=== PATIENT | female | born 1965 | race Caucasian/White ===

== ENCOUNTER → 2018-10-22 | Day surgery (SDC) | payer BC ==
[~2018-10-22] MED LIST: Lactated Ringers 1,000 ML IV SCH; Propofol 200 MG/20 ML SDV IV ONE
--- NOTE | 2018-10-25 09:52 | OR ---
DATE OF OPERATION: 10/22/2018 PREOPERATIVE DIAGNOSIS: SCREENING COLONOSCOPY. POSTOPERATIVE DIAGNOSIS: SCREENING COLONOSCOPY. SURGEON: Jimi Bradford MD PROCEDURE: FULL-LENGTH COLONOSCOPY. ANESTHESIA: MAC via [employer]. COMPLICATIONS: None. SPECIMEN: None. FINDINGS: Normal full length colonoscopy. RECOMMENDATIONS: Follow up colonoscopy every 10 years. INDICATIONS: The patient was in for routine physical. Screening colonoscopy ordered due to her age. DESCRIPTION OF PROCEDURE: The patient was prepped and draped, placed in a left lateral decubitus position. A lubricated Olympus colonoscope was inserted and easily advanced to the cecum. Direct visualization of the ileocecal valve and appendiceal orifice was accomplished. Bowel prep was excellent. Upon withdrawal of the scope, throughout the length of the colon, I found no signs of any polyps, masses, ulceration, bleeding sites. No vascular abnormalities or signs of colitis. There were no significant diverticula. The rectal vault was benign. Retroflexion of the scope in the rectum showed no anal lesions. Air was suctioned and scope removed without complication. HERNÁN/IAN /[id number]
== END ==
LOC: CC.SDS 07:58
PROVIDERS: ATTEND Family Medicine
DX: Z12.11 Encounter for screening for malignant neoplasm of colon (principal); E03.9 Hypothyroidism, unspecified; E78.5 Hyperlipidemia, unspecified; K21.9 Gastro-esophageal reflux disease without esophagitis; G43.909 Migraine, unspecified, not intractable, without status migrainosus; N32.81 Overactive bladder; Z79.899 Other long term (current) drug therapy
CPT/HCPCS: 45378; J2704; J7120